=== PATIENT | female | born 1980 | race Caucasian/White ===

== ENCOUNTER 2018-01-06 23:09 | Emergency (ER) | payer SELFPAY ==
[~2018-01-06] VITALS: Ht 149.9 cm; Wt 68.6 kg
[2018-01-07] MEDS ORDERED: LORTAB 1010 MG PO (01:03)
[2018-01-07] MEDS ORDERED: BACTRIM DS1 TAB PO (01:03)
[2018-01-07 01:10] VITALS: BP 122/70
== END 2018-01-07 01:15 | disposition home or self-care (01) | DRG 603 ==
LOC: ED 23:09
DX: L03.114 Cellulitis of left upper limb (principal); R22.32 Localized swelling, mass and lump, left upper limb